=== PATIENT | male | born 1945 | race Two or more races ===

== ENCOUNTER 2019-05-20 22:54 | Emergency (ER) | payer MEDICARE, MEDICAID ==
[~2019-05-20] VITALS: Ht 162.6 cm; Wt 72.7 kg
[~2019-05-20 22:54] MED LIST: DIGO125T71 PO; LISI40TA4 PO; METO-391 PO; SIMV-46 PO
[2019-05-20] MEDS ORDERED: ADV100 IH (23:17)
[2019-05-20] MEDS ORDERED: TRAZ-252 PO (23:17)
[2019-05-20] MEDS ORDERED: PANT40TA25 PO (23:17)
[2019-05-20] MEDS ORDERED: TIOT185 IH (23:17)
[2019-05-20] MEDS ORDERED: OMEP20 PO (23:17)
[2019-05-20] MEDS ORDERED: ATOR20TA86 PO (23:17)
[2019-05-20] MEDS ORDERED: CIPR500S5 PO (23:17)
[2019-05-20] MEDS ORDERED: LISI-662 PO (23:17)
[2019-05-21 01:49] LABS: BASOPHILS % (AUTO) 0.5 % (0.0-2.0); EOSINOPHILS % (AUTO) 7.1 % (1.0-6.0); LYMPHOCYTES # (AUTO) 1.9 K/uL (1.0-4.8); LYMPHOCYTES % (AUTO) 21.4 % (22.0-44.0); MEAN CORPUSCULAR HEMOGLOBIN 31.2 pg (26.0-34.0); MEAN CORPUSCULAR VOLUME 92 fL (80-100); MONOCYTES # (AUTO) 0.8 K/uL (0.1-1.0); MONOCYTES % (AUTO) 9.4 % (2.0-9.0); NEUTROPHILS # (AUTO) 5.5 K/uL (1.8-7.7); NEUTROPHILS % (AUTO) 61.6 % (40.0-70.0); PLATELET COUNT (AUTO) 305 K/uL (150-450); RED BLOOD CELL COUNT(AUTO) 4.79 MIL/uL (4.50-5.90); RED CELL DISTRIBUTION WIDTH 13.4 % (11.5-14.5)
[2019-05-21 01:59] LABS: CALCIUM, TOTAL 9.8 mg/dL (8.8-10.5); CREATININE 1.19 mg/dL (0.60-1.30); POTASSIUM 4.2 mmol/L (3.5-5.1)
[2019-05-21 02:06] LABS: ALBUMIN 3.8 g/dL (3.4-5.0); BILIRUBIN,TOTAL 0.3 mg/dL (0.1-1.0)
[2019-05-21 02:10] VITALS: BP 141/86
== END 2019-05-21 03:16 | disposition home or self-care (01) ==
LOC: EMS 22:55
DX: J06.9 Acute upper respiratory infection, unspecified (principal); I25.10 Atherosclerotic heart disease of native coronary artery without angina pectoris; E78.00 Pure hypercholesterolemia, unspecified; Z79.899 Other long term (current) drug therapy
CPT/HCPCS: 93005